=== PATIENT | female | born 1995 | race Two or more races ===

== ENCOUNTER 2024-01-29 16:48 | Emergency (ER) | payer MEDICAID, SELFPAY ==
[2024-01-29 16:59] VITALS: BP 141/89; PULSE 98; RESP 16; TEMP 36.4; O2SAT 99; BMI 19.6
--- NOTE | 2024-01-29 17:00 | PD.EDSKIN ---
ED Skin Abcess FB-RME/HPI General Chief complaint: Animal Bite Stated complaint: Right leg spider bite Time Seen by Provider: 01/29/24 16:53 Arrival date/time: 01/29/24 16:48 28-year-old female presents emergency department today she reports is approximate 10 to 12 weeks patient reports she thinks she has an insect bite to right lower extremity patient reports pain and erythema Limitations: no limitations Related Data Previous Rx's ?Medication ?Instructions ?Recorded acetaminophen 500 mg capsule 500 mg PO Q6H PRN fever or pain 01/02/21 #30 caps ibuprofen 400 mg tablet 400 mg PO Q8H PRN fever or pain 01/02/21 #30 tabs bacitracin 500 unit/gram topical 1 applic topical TID 7 days #28.4 01/29/24 ointment grams cephalexin 500 mg tablet 500 mg PO TID 7 days #21 tabs 01/29/24 Allergies Allergy/AdvReac Type Severity Reaction Status Date / Time No Known Allergies Allergy Verified 01/02/21 06:14 Review of Systems Review of Systems Systems Reviewed: All systems reviewed, normal except as documented Constitutional Constitutional: Reports system reviewed and no additional complaints, except as documented, Denies fever(s) and Denies headache(s) Eyes Eyes: Reports system reviewed and no additional complaints, except as documented and Denies blurry vision ENT Ears, Nose, Mouth, and Throat: Reports system reviewed and no additional complaints, except as documented, Denies headache(s), Denies nasal congestion and Denies nasal discharge Cardiovascular Cardiovascular: Reports system reviewed and no additional complaints, except as documented, Denies chest pain and Denies dyspnea Respiratory Respiratory: Reports system reviewed and no additional complaints, except as documented, Denies chest congestion, Denies cough and Denies dyspnea Gastrointestinal Gastrointestinal: Reports system reviewed and no additional complaints, except as documented and Denies abdominal pain Integumentary/Breasts Skin/Breast: Reports system reviewed and no additional complaints, except as documented, Denies rash and Reports other (Erythema possible insect bite right ankle) Neurologic Neurologic: Reports system reviewed and no additional complaints, except as documented, Reports as per HPI and Denies headache(s) Past Medical History Past Medical History CARDIAC: Negative Congestive Heart Failure RESPIRATORY: Negative Chronic Obstructive Pulmonary Disease (COPD) GENITOURINARY: Negative Renal Disease ENDOCRINE: Negative Diabetes Mellitus Type 1 or Diabetes Mellitus Type 2 Social History SMOKING STATUS: Current every day smoker ED Exam General Limitations: Present no limitations General appearance: Present alert and in no apparent distress Head Head exam: Present atraumatic Eye Eye exam: Present normal appearance, PERRL and EOMI ENT ENT exam: Present normal exam, normal oropharynx and mucous membranes moist Neck Neck exam: Present normal inspection, full ROM and trachea midline Chest Chest inspection: Present normal inspection and symmetric chest wall rise Respiratory Respiratory exam: Present normal lung sounds bilaterally Cardiovascular Cardiovascular exam: Present regular rate, normal rhythm and normal heart sounds Abdominal Exam Abdominal exam: Present soft and normal bowel sounds Extremities Exam Extremities exam: Present full ROM, tenderness and normal capillary refill Back Exam Back exam: Present normal inspection and full ROM Neurological Exam Neurological exam: Present alert, oriented X3 and CN II-XII intact Psychiatric Psychiatric exam: Present normal affect and normal mood Skin Skin exam: Present warm, dry and other (Erythema, insect bite right lower extremity) Course Quality Measures none Vital Signs Vital signs: Vital Signs Temperature 97.5 F 01/29/24 16:59 Pulse Rate 98 01/29/24 16:59 Respiratory Rate 16 01/29/24 16:59 Blood Pressure 141/89 H 01/29/24 16:59 Pulse Oximetry (%) 99 01/29/24 16:59 Oxygen Delivery Method Room Air 01/29/24 16:59 O2 saturation 99% on room air within normal limits Skin / Abscess / Foreign Body MDM Narrative MDM Narrative:: 28-year-old female presents emergency department today she reports is approximate 10 to 12 weeks patient reports she thinks she has an insect bite to right lower extremity patient reports pain and erythema On exam patient has erythema right lower extremity possible insect bite Patient will treat with course of antibiotics Patient discharged home in no distress to follow-up with primary care doctor in the next 24 to 48 hours and for any worsening symptoms to return to the ER immediately Patient data External records reviewed:: [facility] previous records Clinical information provided by:: patient Social determinants that could affect healthcare access:: none Patient has the following chronic illnesses:: None How is presenting disease/condition affected by chronic disease/condition?: no chronic disease Evaluation data The following diagnostics were reviewed and interpreted by me:: other (specify) (N/A) Lab and/or radiology exams considered but not ordered:: Consider not ordered Interpretation Summary: N/A Medications / Prescriptions Medications or Prescriptions considered but not ordered:: Given Medication administrations:: Given Consultations Consultation(s) initiated? (list below): No Diagnosis Skin/Abscess Differential Diagnosis: abscess of skin or subcutaneous tissue, cellulitis and insect bites Most likely diagnosis given after review of the tests above:: Insect bite Admission Indicated Admission indicated?: not indicated Admission Request Was there a request for admission?: No Disposition Plan Disposition Plan: Discharge Discharge Attestation Discharge Attestation: The patient and all family members were given an opportunity to ask questions and understood the discharge instructions. Discharge instructions specifically effects, indications for sooner follow up or return to the emergency department, and the expected course of current diagnosis. Patient condition: Stable Discharge Plan Plan Patient Disposition: HOME (Self Care) Disposition Comment: Stable Prescriptions/Referrals Prescriptions/Med Rec: New bacitracin 500 unit/gram ointment 1 applic topical TID 7 Days Qty: 28.4 0RF cephalexin 500 mg tablet 500 mg PO TID 7 Days Qty: 21 0RF No Action ibuprofen 400 mg tablet 400 mg PO Q8H PRN (Reason: fever or pain) Qty: 30 0RF acetaminophen 500 mg capsule 500 mg PO Q6H PRN (Reason: fever or pain) Qty: 30 0RF Problem List Clinical Impression: Cellulitis Patient/Caregiver Discharge Instructions Education Materials: ED Cellulitis Additional Instructions: Please follow up with your primary care doctor in the next 24-48hrs for any worsening symptoms return here immediately Print Language: Frisian Stand Alone Forms: Angy Award Info., Patient Portal Info Letter ROBYN/OSWALDO Supervising Physician ROBYN/OSWALDO Supervising Physician: Dr. Michel
== END 2024-01-29 17:22 | disposition home or self-care (01) ==
LOC: SERX 17:10
PROVIDERS: Emergency Provider Emergency Medicine; PCP Family Medicine
DX: O99.711 Diseases of the skin and subcutaneous tissue complicating pregnancy, first trimester (principal); L03.115 Cellulitis of right lower limb; O99.331 Smoking (tobacco) complicating pregnancy, first trimester; F17.210 Nicotine dependence, cigarettes, uncomplicated; Z3A.12 12 weeks gestation of pregnancy
CPT/HCPCS: 99281

== ENCOUNTER 2024-02-09 10:14 | Emergency (ER) | payer MEDICAID, SELFPAY ==
[2024-02-09 10:17] VITALS: BP 128/78; PULSE 100; RESP 16; TEMP 36.8; O2SAT 100; BMI 19.0
--- NOTE | 2024-02-09 10:39 | EDNOTE_ITS ---
ED Skin Abcess FB-RME/HPI General Chief complaint: Extremity Problem,Nontraumatic Stated complaint: RIGHT LEG RASH/PAIN X 3 WKS; SEEN ER 2 WKS AGO Time Seen by Provider: 02/09/24 10:33 Source: patient Arrival date/time: 02/09/24 10:14 This is a 28-year-old female who presents to the emergency department with complaints of a possible infected sore to her right lower leg. Patient reports she was evaluated for similar symptoms approximately 3 weeks ago and felt to take her outpatient antibiotics. Patient reports she is currently 12 weeks of gestation. Denies fever, chills rigors no purulent discharge Mode of arrival: ambulatory Limitations: no limitations Related Data Previous Rx's ?Medication ?Instructions ?Recorded acetaminophen 500 mg capsule 500 mg PO Q6H PRN fever or pain 01/02/21 #30 caps ibuprofen 400 mg tablet 400 mg PO Q8H PRN fever or pain 01/02/21 #30 tabs cephalexin 500 mg tablet 500 mg PO TID 5 days #15 tabs 02/09/24 mupirocin 2 % topical ointment 1 applic topical BID 7 days #22 02/09/24 grams Allergies Allergy/AdvReac Type Severity Reaction Status Date / Time No Known Allergies Allergy Verified 02/09/24 10:16 Review of Systems Review of Systems Systems Reviewed: All systems reviewed, normal except as documented Narrative Review of Systems: Gen: No fever, no chills, no weight loss EYES: No discharge, no visual changes, no pain HEENT: No ear pain, no congestion, no sore throat PULM: No shortness of breath, no cough, no congestion CV: No chest pain, no dyspnea on exertion, no palpitations GI: No nausea, no vomiting, no diarrhea, no pain, no constipation : No frequency, no urgency,? no dysuria Musc/skel: No joint pain, no back pain Skin: + Lighters rash right lower leg ED Exam General Limitations: Present no limitations General appearance: Present alert and in no apparent distress Head Head exam: Present atraumatic Eye Eye exam: Present normal appearance, PERRL and EOMI ENT ENT exam: Present normal exam, normal oropharynx and mucous membranes moist Neck Neck exam: Present normal inspection, full ROM and trachea midline Chest Chest inspection: Present normal inspection and symmetric chest wall rise Respiratory Respiratory exam: Present normal lung sounds bilaterally Cardiovascular Cardiovascular exam: Present regular rate, normal rhythm and normal heart sounds Abdominal Exam Abdominal exam: Present soft and normal bowel sounds Extremities Exam Extremities exam: Present full ROM, tenderness and normal capillary refill Back Exam Back exam: Present normal inspection and full ROM Neurological Exam Neurological exam: Present alert, oriented X3 and CN II-XII intact Psychiatric Psychiatric exam: Present normal affect and normal mood Skin Skin exam: Present warm, dry and other (Erythema, insect bite right lower extremity) Course Quality Measures none Orders Category Date Time Status cefTRIAXone [Rocephin] 1,000 mg Med 02/09/24 10:35 Discontinued Lidocaine 1% 20 ml [Xylocaine 1% 20 ML] 2.1 ml IM X1 Vital Signs Vital signs: Vital Signs Temperature 98.2 F 02/09/24 10:17 Pulse Rate 100 02/09/24 10:17 Respiratory Rate 16 02/09/24 10:17 Blood Pressure 128/78 02/09/24 10:17 Pulse Oximetry (%) 100 02/09/24 10:17 Oxygen Delivery Method Room Air 02/09/24 10:17 Skin / Abscess / Foreign Body MDM Narrative MDM Narrative:: 28-year-old female presents emergency department today she reports is approximate 10 to 12 weeks , here with what appears of cellulitis pattern to right lower leg. Patient reports she did not take her Keflex as directed on last visit. Patient will treat with course of antibiotics, gram of Rocephin given in ED. Patient discharged home in no distress to follow-up with primary care doctor in the next 24 to 48 hours and for any worsening symptoms to return to the ER immediately Patient data External records reviewed:: [facility] [place] previous records Clinical information provided by:: patient Social determinants that could affect healthcare access:: none Patient has the following chronic illnesses:: None How is presenting disease/condition affected by chronic disease/condition?: no chronic disease Evaluation data The following diagnostics were reviewed and interpreted by me:: other (specify) (N/A) Lab and/or radiology exams considered but not ordered:: Consider not ordered Interpretation Summary: N/A Medications / Prescriptions Medications or Prescriptions considered but not ordered:: Given Medication administrations:: Medication Administration History Discontinued Medications Ceftriaxone Sodium 1,000 mg/ (Lidocaine HCl 2.1 ml) 0 mg IM X1 ONE Stop: 02/09/24 10:36 Last Admin: 02/09/24 10:49 Dose: 2.1 mg Documented By: OA Given Consultations Consultation(s) initiated? (list below): No Diagnosis Skin/Abscess Differential Diagnosis: abscess of skin or subcutaneous tissue, cellulitis and insect bites Most likely diagnosis given after review of the tests above:: Cellulitis lower leg Admission Indicated Admission indicated?: not indicated Admission Request Was there a request for admission?: No Disposition Plan Disposition Plan: Discharge Discharge Attestation Discharge Attestation: The patient and all family members were given an opportunity to ask questions and understood the discharge instructions. Discharge instructions specifically effects, indications for sooner follow up or return to the emergency department, and the expected course of current diagnosis. Patient condition: Stable Discharge Plan Plan Patient Disposition: HOME (Self Care) Prescriptions/Referrals Prescriptions/Med Rec: New mupirocin 2 % ointment 1 applic topical BID 7 Days Qty: 22 0RF cephalexin 500 mg tablet 500 mg PO TID 5 Days Qty: 15 0RF No Action ibuprofen 400 mg tablet 400 mg PO Q8H PRN (Reason: fever or pain) Qty: 30 0RF acetaminophen 500 mg capsule 500 mg PO Q6H PRN (Reason: fever or pain) Qty: 30 0RF Problem List Clinical Impression: Cellulitis Patient/Caregiver Discharge Instructions Discharge Activity: activity as tolerated Education Materials: ED Cellulitis Additional Instructions: Keep area clean and dry. Please perform good hygiene apply the antibiotic cream as directed. You need to restart your antibiotic and complete course Follow-up with your primary doctor or clinic for further evaluation Return to the emergency department with any worsening symptoms change in condition. Print Language: Faroese Stand Alone Forms: Angy Award Info., Patient Portal Info Letter MD Attestation Attestation The patient was seen by the midlevel practitioner. I, the co-signing physician, was present during the entire ER visit. While I did not physically examine the patient, I was available for consultation as needed.
[2024-02-09] MEDS: cefTRIAXone 1,000 MG, LIDOCAINE 1% 20 ML 2.1 ML IM (10:49)
== END 2024-02-09 12:52 | disposition home or self-care (01) ==
LOC: SERX 10:48
PROVIDERS: Emergency Provider Emergency Medicine
DX: L03.115 Cellulitis of right lower limb (principal)
CPT/HCPCS: 96372; 99283; J0696; J3490

== ENCOUNTER 2024-04-23 13:22 | Outpatient (AMB) | payer MEDICAID, SELFPAY ==
--- NOTE | 2024-04-23 13:16 | OBCLNT_ITS ---
Vital Signs 04/23/24 13:30 Height 1.68 m Height Method Stated Weight 58.769 kg Weight Measurement Method Standing Scale BMI 20.8 BP 111/68 Blood Pressure Source Automatic Cuff Blood Pressure Location Left Upper Arm Position Sitting Respiration 16 Pulse 100 Pulse Source Monitor Temp 96.8 F Temp Source Oral Pulse Oximetry (%) 100 Oxygen Delivery Method Room Air Allergies/Home Meds Allergies & Medications Allergies No Known Allergies Allergy (Verified 04/23/24 13:32) Medication Reconciliation No Known Home Medications 04/23/24 [History Confirmed 04/23/24] Intake Visit Data Collection New Patient or Established: Established Patient (seen at [facility] within 3 years) Reason for Visit:: Establish OB care Consent obtained for Telemed Visit: No Seen by Clinical Staff ONLY (RN/MA): No Jet Engine Mechanic Required: No Do You Feel Safe at Home: Yes Authorities Contacted: N/A PCP or OBGYN visit in last 3 months: Yes Date of Last PCP or OBGYN visit: 01/09/24 Hx Now: Yes Are you currently on any form of Control: No Last menstrual period: 11/28/23 Pain Present Currently: No Pain Scale Used: Bee-Mejia/Numerical Pain scale:: 0 Smoking Status Smoking Status: Current some day smoker Cessation Counseling Provided: SPENCER was advised that quitting smoking is the single most important factor to protect the health of themselves and their family. Discussed the benefits of quitting smoking with patient. Encouraged patient to quit smoking and provided Cessation assistance materials and resources. Tobacco Use: Cigarette Years smoked: 5 Are you interested in Quitting?: No Questionnaires Covid-19 Vaccine Questionnaire Has patient been vacinated for Covid-19 Have you been vacinated for Covid-19: No PHQ-9 PHQ-2 Over the last 2 weeks, how often have you been bothered by any of the following problems? 1. Little interest or pleasure in doing things: not at all 2. Feeling down, depressed, or hopeless: not at all Total score: 0 PHQ-9 3. Trouble falling or staying asleep, or sleeping too much: Not at all 4. Feeling tired or having little energy: Not at all 5. Poor appetite or overeating: Not at all 6. Feeling bad about yourself - or that you are a failure or have let yourself or your family down: Not at all 7. Trouble concentrating on things, such as reading the newspaper or watching television: Not at all 8. Moving or speaking so slowly that other people could have noticed? - Or the opposite - being so fidgety or restless that you have been moving around a lot more than usual: not at all 9. Thoughts that you would be better off or of hurting yourself in some wa y: Not at all Total score: 0 Source: Developed by Drs. Donn Solorio, Nora Woodard, Kayden Medina and colleagues, with an educational darío from [employer]. Depression screen completed yes Social History Living Situation History Marital Status: Life Partner Lives With: Significant Other Housing: House Tobacco History Smoking Status: Current some day smoker Alcohol History Alcohol Intake: Former Alcohol Intake Frequency: A Few Times a Month Substance Use History Substance Use: daily fentanyl Domestic Abuse History Do You Feel Safe at Home: Yes Past Medical History Past Medical History Have you ever been diagnosed with any of the following: Neurological Problems Meningitis: No Seizures: No Guillain-Shirland Syndrome: No Moseley's Palsy: No Migraine: No Cardiology Problems Cardiac Arrhythmia: No Heart Murmur: No Rheumatic Fever: No Hypertension: No Respiratory Problems Chronic Obstructive Pulmonary Disease (COPD): No Asthma: No Smoking: Yes Smoking Cessation Counseling: Yes Smoking Exposure: Yes Stomache/Intestinal Problems Hepatitis: No Genital/Urinary Problems Renal Disease: No Reproductive Problems Breast Cancer: No Endometriosis: No Fibroids: No Genital Herpes: No Gonorrhea: No Pelvic Inflammatory Disease: No Polycystic Ovarian Syndrome: No Previous Pregnancies: Yes (ETOP in past) Syphilis: No Musculoskeletal Problems Arthritis: No Rheumatoid Arthritis: No Scoliosis: Yes Fibromyalgia: No Endocrine Problems Diabetes Mellitus Type 1: No Diabetes Mellitus Type 2: No Hyperthyroidism: No Hypothyroidism: No Blood Problems Anemia: No Psychologic Problems Recreational Drug Use: Yes History of Present Illness HPI Narrative The patient is a 29 y/o at around 18-19 weeks presents as a new OB. The pt states she went to [facility] in January and paid for an US at home recently. She states she is a current fentanyl user and admits to daily use. She states she saw an MD in [place] in the past reporting very large breasts and back pain with scoliosis and he prescribed oxycontin while awaiting a referral for a breast reduction. Pt stated she got hooked on oxy after this. She stated once she was taking daily narcotics, that she lost a lot of weight and does not need a breast reduction now.She states she wants to have a healthy baby and wants to get off the fentanyl. She states she is entering in patient rehab in May. The FOB does not use drugs per pt. OB Initial Visit Menstrual History Menstrual reliability: definite Flow: normal Menstrual regularity: regular Monthly: Yes Age at menarche: 8 On control pills at conception: No Associated symptoms (LMP): Reports fatigue and breast tenderness OB History : 2 Hx Total # of Abortions (Spontaneous & Elective): 1 Infection History & Risk Evaluation History of STDs: none HIV risk evaluation: low risk Hepatitis B risk evaluation: low risk Patient or partner has history of Genital Herpes: No Varicella/chicken pox status: immunized Genetic Screening & History Genetic Screening/Teratology Counseling - Includes patient, baby's father, or anyone in either family with: 1. Patient's age 35 years or older as of estimated date of delivery: No 2. Thalassemia (North Korean, Northern Irish, Mediterranean, or Background); MCV less than 80: No 3. Neural Tube Defect (Meningomyelocele, Spina Bifida, or Anencephaly): No 4. Congenital Heart Defect: No 5. Down Syndrome: No 6. Clayton-Sachs (Ashkenazi Anabaptism, Cajun, [place] Citizen Monegasque): No 7. Leilani Disease (Ashkenazi Anabaptism): No 8. Familial Dysautonomia (Ashkenazi Anabaptism): No 9. Sickle Cell Disease or Trait (): No 10. Hemophilia or other blood disorders: No 11. Muscular Dystrophy: No 12. Cystic Fibrosis: No 13. [place]'s Chorea: No 14. Mental Retardation/Autism: No 15. Other inherited genetic or chromosomal disorder: No 16. Maternal Metabolic Disorder (EG,TYPE 1 Diabetes, PKU): No 17. Patient or baby's father had a child with defects not listed above: No 18. Recurrent loss or a stillbirth: No 19. Medications (including supplements, vitamins, herbs or otc drugs)/illicit/recreational drugs/alcohol since last menstrual period: No 20. Any other: No Infection History 1. Live with someone with TB or exposed to TB: No 2. Rash or viral illness since last menstrual period: No 3. Hepatitis B,C: No Other (see comments) Source: [employer] OB Flowsheet OB Flowsheet Initial Weight: Not Recorded Date -?-?-?-?-?-?-?-?-?-?-?-?- EGA Weight Edema CTX Effacement BP Fundal ht Pres Dilation Effacement Station Visit Note Alb Glu FHR Mov 04/23/24 -?-?-?-?-?-?-?-?-?-?-?-?- 18w 6d 58.769 kg 111/68 140 active Review of Systems Review of Systems Systems Reviewed: All systems reviewed, normal except as documented Constitutional Constitutional: Reports fatigue Comments: Pt reports good FM, no UCs or VB Endocrine Endocrine: Reports fatigue Exam General Limitations: no limitations General Appearance: alert and anxious Head Head exam: atraumatic, normocephalic and normal inspection ENT ENT exam: Present other (Poor dentition) Neck Neck exam: Present normal inspection, full ROM and trachea midline Chest Chest inspection: Present normal inspection and symmetric chest wall rise Resp Respiratory exam: Present normal lung sounds bilaterally Card Cardiovascular exam: Present regular rate, normal rhythm and normal heart sounds Abdominal Abdominal exam: Present other (fundus 20 week size) Bimanual exam: Present uterine enlargement (20 weeks size) Skin Skin exam: Present warm, dry, intact and normal color Assessment & Plan Diagnosis / Problem List (1) Fentanyl dependence: Status: Acute Plan: Strongly discouraged drug use in or at all. Told of dangers of opioid addiction especially buying opiods on the street. The fact that she could suddenly and stop breathing was discussed. Naloxone use was strongly recommended.Consider referrall to Dr. Kruger for pain management. Pt has an appointment at rehab coming up. (2) : Status: Acute Qualifiers: Weeks of gestation: 19 weeks Qualified Code(s): Z3A.19 - 19 weeks gestation of Plan: Pt needs high school special education teacher consult and a Level II US for Hx current daily fentanyl use. Get PNC labs and pt desires NIPT Additional Plan Follow Up: 4 Weeks Office Procedures OB Clinic LOC & Office Proc's Nursing/Assessment Patient Status: Established Patient OB Clinic Nursing Assessment: BP Monitoring, Medication Reconciliation, Update PMH in EMR and Vital Signs OB Clinic Coordination of Care: Consent,records obtained, informed consent, Education Simp Pt/Fam, Lab and Imaging orders and Staff clarify orders Special Needs: Heart tones Established Patient Charge Established Patient Point Assignment: 120 Established Patient Point Charge: EP Level 4 (120-155)
[2024-04-23 13:30] VITALS: BP 111/68; PULSE 100; RESP 16; TEMP 36; O2SAT 100; BMI 20.8
== END 2024-04-23 14:44 | disposition home or self-care (01) ==
LOC: HODSOBC 13:22
PROVIDERS: Supervising Provider Obstetrics & Gynecology; Visit Provider Obstetrics & Gynecology
DX: O99.322 Drug use complicating pregnancy, second trimester (principal); F11.20 Opioid dependence, uncomplicated; Z3A.19 19 weeks gestation of pregnancy
CPT/HCPCS: 99214; G0463

== ENCOUNTER 2024-06-07 09:54 | Outpatient (AMB) | payer MEDICAID, SELFPAY ==
[2024-06-07 10:20] VITALS: BP 121/73; PULSE 105; RESP 16; TEMP 36.2; O2SAT 98; BMI 22.4
--- NOTE | 2024-06-07 10:20 | OBCLNT_ITS ---
Vital Signs 06/07/24 10:20 Height 1.68 m Height Method Stated Weight 63.106 kg Weight Measurement Method Standing Scale BMI 22.4 BP 121/73 Blood Pressure Source Automatic Cuff Blood Pressure Location Left Upper Arm Position Sitting Respiration 16 Pulse 105 H Pulse Source Monitor Temp 97.2 F Temp Source Oral Pulse Oximetry (%) 98 Oxygen Delivery Method Room Air Allergies/Home Meds Allergies & Medications Allergies No Known Allergies Allergy (Verified 06/07/24 10:22) Medication Reconciliation cephalexin 500 mg capsule 500 mg PO TID 7 days #21 caps 06/07/24 [Rx] famotidine 20 mg tablet (Pepcid) 20 mg PO BID 6 weeks #84 tabs 06/07/24 [Rx] Intake Visit Data Collection New Patient or Established: Established Patient (seen at [facility] within 3 years) Reason for Visit:: Follow-up of the visit Seen by Clinical Staff ONLY (RN/MA): No Citizenship Instructor Required: No Do You Feel Safe at Home: Yes Authorities Contacted: N/A PCP or OBGYN visit in last 3 months: Yes Date of Last PCP or OBGYN visit: 04/23/24 Hx Now: Yes Are you currently on any form of Control: No Pain Present Currently: No Pain Scale Used: Bee-Mejia/Numerical Pain scale:: 0 Smoking Status Smoking Status: Current some day smoker Cessation Counseling Provided: SPENCER was advised that quitting smoking is the single most important factor to protect the health of themselves and their family. Discussed the benefits of quitting smoking with patient. Encouraged patient to quit smoking and provided Cessation assistance materials and resources. Tobacco Use: Vapor Cigarette (Fentanyl) Years smoked: 3 Are you interested in Quitting?: Yes Would you like additional Smoking Cessation Counseling?: No Questionnaires Covid-19 Vaccine Questionnaire Has patient been vacinated for Covid-19 Have you been vacinated for Covid-19: Yes PHQ-9 PHQ-2 Over the last 2 weeks, how often have you been bothered by any of the following problems? 1. Little interest or pleasure in doing things: not at all 2. Feeling down, depressed, or hopeless: not at all Total score: 0 PHQ-9 3. Trouble falling or staying asleep, or sleeping too much: Not at all 4. Feeling tired or having little energy: Not at all 5. Poor appetite or overeating: Not at all 6. Feeling bad about yourself - or that you are a failure or have let yourself or your family down: Not at all 7. Trouble concentrating on things, such as reading the newspaper or watching television: Not at all 8. Moving or speaking so slowly that other people could have noticed? - Or the opposite - being so fidgety or restless that you have been moving around a lot more than usual: not at all 9. Thoughts that you would be better off or of hurting yourself in some way: Not at all Total score: 0 If you checked off any problems, how difficult have these problems made it for you to do your work, take care of things at home, or get along with other people?: not difficult at all Source: Developed by Drs. Donn Solorio, Nora Woodard, Kayden Medina and colleagues, with an educational darío from [employer]. Depression screen completed yes Social History Living Situation History Marital Status: Single Lives With: Significant Other Housing: House Housing Other:: Father the baby is present today. They state they are moving to [place] soon Tobacco History Smoking Status: Current some day smoker Alcohol History Alcohol Intake: Former Alcohol Intake Frequency: A Few Times a Month Substance Use History Substance Use: daily fentanyl. On first visit was+ for fentanyl and amphetamines Domestic Abuse History Do You Feel Safe at Home: Yes Past Medical History Past Medical History Have you ever been diagnosed with any of the following: Neurological Problems Meningitis: No Seizures: No Guillain-[place] Syndrome: No Moseley's Palsy: No Migraine: No Cardiology Problems Cardiac Arrhythmia: No Heart Murmur: No Congestive Heart Failure: No Rheumatic Fever: No Hypertension: No Respiratory Problems Chronic Obstructive Pulmonary Disease (COPD): No Asthma: No Smoking: Yes Smoking Cessation Counseling: Yes Smoking Exposure: Yes Stomache/Intestinal Problems Hepatitis: No Genital/Urinary Problems Renal Disease: No Reproductive Problems Breast Cancer: No Endometriosis: No Fibroids: No Genital Herpes: No Gonorrhea: No Pelvic Inflammatory Disease: No Polycystic Ovarian Syndrome: No Previous Pregnancies: Yes (ETOP in past) Syphilis: No Musculoskeletal Problems Arthritis: No Rheumatoid Arthritis: No Scoliosis: Yes Fibromyalgia: No Endocrine Problems Diabetes Mellitus Type 1: No Diabetes Mellitus Type 2: No Hyperthyroidism: No Hypothyroidism: No Blood Problems Anemia: No Psychologic Problems Recreational Drug Use: Yes Visit TAI Calculator Estimated Delivery Date Method Current WG Current Estimate 09/18/24 Ultrasound #1 25w 2d Other Estimates 09/03/24 LMP (Uncertain) 27w 3d Expected Delivery Route/Plan Anticipate Specific Issue/Plans First visit positive for amphetamines and fentanyl. Drug screen at each visit. Patient is trying to wean off the fentanyl. She was smoking 1 g of fentanyl a day and is now down to one half of a gram of fentanyl per day. Refer to maternal- medicine Initial Weight: Not Recorded Date -?-?-?-?-?-?-?-?-?-?-?-?- EGA Weight Edema CTX Effacement BP Fundal ht Pres Dilation Effacement Station Visit Note Alb Glu FHR Mov 04/23/24 -?-?-?-?-?-?-?-?-?-?-?-?- 18w 6d 58.769 kg 111/68 140 active 06/07/24 -?-?--?-?-?-?-?-?-?-?-?-?- 25w 2d 63.106 kg 121/73 26 150 active Notes Visit Date: 06/07/24 Last Updated by: Gita Chou (OB Clinic)MD Father of baby is present today. He states they are moving to [place] because he got a job there. They are not sure when they are going to go but probably before delivery. Patient states her hands are cracking and they are red and same thing is happening to her feet she feels hot and cold and she is jittery today and clammy. No fevers. She is weaning off her fentanyl. She is down to a half a gram a day and she is smoking this. She was on 1 g a day. She denies any other drug use. We did discuss her anxiety and likely withdrawal symptoms I did offer medication such as Zoloft. Patient declines, she states she is going into rehab soon. Schedule structural survey. Schedule glucose challenge test and drug screen. Results Objective Laboratory: labs were reviewed today revealing positive amphetamines and fentanyl at her first visit to [facility]. Patient will do UDS patient also had a UTI I am unsure whether this was treated so I will treat her with Keflex Assessment & Plan Diagnosis / Problem List (1) Fentanyl dependence: Status: Acute Plan: Encouraged discontinuing drug use. Assessment and Plan: Refer to maternal- medicine (2) : Status: Acute Qualifiers: Weeks of gestation: 25 weeks Qualified Code(s): Z3A.25 - 25 weeks gestation of Assessment and Plan: Need glucose challenge test, check thyroid. Check drug screen. Unsure whether her UTI was treated at first visit at [facility] so we will prescribe Keflex. Additional Plan Pepcid called in for heartburn Follow Up: 2 Weeks Office Procedures OB Clinic LOC & Office Proc's Nursing/Assessment Patient Status: Established Patient OB Clinic Nursing Assessment: BP Monitoring, Medication Reconciliation, Update PMH in EMR and Vital Signs OB Clinic Coordination of Care: Consent,records obtained, informed consent, Education Simp Pt/Fam and Staff clarify orders Special Needs: Heart tones Established Patient Charge Established Patient Point Assignment: 105 Established Patient Point Charge: EP Level 3 (80-115)
== END 2024-06-07 10:57 | disposition home or self-care (01) ==
LOC: HODSOBC 09:54
PROVIDERS: PCP Obstetrics & Gynecology; Referring Provider Obstetrics & Gynecology; Supervising Provider Obstetrics & Gynecology; Visit Provider Obstetrics & Gynecology
DX: O99.322 Drug use complicating pregnancy, second trimester (principal); F11.20 Opioid dependence, uncomplicated; Z3A.25 25 weeks gestation of pregnancy
CPT/HCPCS: 99213; G0463

== ENCOUNTER 2024-06-25 15:30 | Outpatient (AMB) | payer MEDICAID, SELFPAY ==
[2024-06-25 15:54] VITALS: BP 119/74; PULSE 103; RESP 18; TEMP 36.2; O2SAT 99; BMI 22.8
--- NOTE | 2024-06-25 15:54 | AMB.OBVISIT ---
Vital Signs 06/25/24 15:54 Height 1.68 m Height Method Stated Weight 64.524 kg Weight Measurement Method Standing Scale BMI 22.8 BP 119/74 Blood Pressure Source Automatic Cuff Blood Pressure Location Left Upper Arm Position Sitting Respiration 18 Pulse 103 H Pulse Source Monitor Temp 97.2 F Temp Source Oral Pulse Oximetry (%) 99 Oxygen Delivery Method Room Air Allergies/Home Meds Allergies & Medications Allergies No Known Allergies Allergy (Verified 06/25/24 15:56) Medication Reconciliation famotidine 20 mg tablet (Pepcid) 20 mg PO BID 6 weeks #84 tabs 06/07/24 [Rx Confirmed 06/25/24] Intake Visit Data Collection New Patient or Established: Established Patient (seen at [facility] within 3 years) Reason for Visit:: appointment Seen by Clinical Staff ONLY (RN/MA): No Absorption Operator Required: No Do You Feel Safe at Home: Yes Authorities Contacted: N/A PCP or OBGYN visit in last 3 months: Yes Date of Last PCP or OBGYN visit: 06/07/24 Hx Now: Yes Are you currently on any form of Control: No Pain Present Currently: No Pain Scale Used: Bee-Mejia/Numerical Pain scale:: 0 Smoking Status Smoking Status: Current some day smoker Cessation Counseling Provided: SPENCER was advised that quitting smoking is the single most important factor to protect the health of themselves and their family. Discussed the benefits of quitting smoking with patient. Encouraged patient to quit smoking and provided Cessation assistance materials and resources. Tobacco Use: Cigarette Years smoked: 5 Are you interested in Quitting?: No Questionnaires Covid-19 Vaccine Questionnaire Has patient been vacinated for Covid-19 Have you been vacinated for Covid-19: Yes PHQ-9 PHQ-2 Over the last 2 weeks, how often have you been bothered by any of the following problems? 1. Little interest or pleasure in doing things: not at all 2. Feeling down, depressed, or hopeless: not at all Total score: 0 PHQ-9 3. Trouble falling or staying asleep, or sleeping too much: Not at all 4. Feeling tired or having little energy: Not at all 5. Poor appetite or overeating: Not at all 6. Feeling bad about yourself - or that you are a failure or have let yourself or your family down: Not at all 7. Trouble concentrating on things, such as reading the newspaper or watching television: Not at all 8. Moving or speaking so slowly that other people could have noticed? - Or the opposite - being so fidgety or restless that you have been moving around a lot more than usual: not at all 9. Thoughts that you would be better off or of hurting yourself in some way: Not at all Total score: 0 If you checked off any problems, how difficult have these problems made it for you to do your work, take care of things at home, or get along with other people?: not difficult at all Source: Developed by Drs. Donn Solorio, Nora Woodard, Kayden Medina and colleagues, with an educational darío from [employer]. Depression screen completed yes Social History Living Situation History Marital Status: Single Lives With: Significant Other Housing: House Housing Other:: Father the baby is present today. They state they are moving to [place] soon Tobacco History Smoking Status: Current some day smoker Alcohol History Alcohol Intake: Former Alcohol Intake Frequency: A Few Times a Month Substance Use History Substance Use: daily fentanyl. On first visit was+ for fentanyl and amphetamines Domestic Abuse History Do You Feel Safe at Home: Yes Past Medical History Past Medical History Have you ever been diagnosed with any of the following: Neurological Problems Meningitis: No Seizures: No Guillain-[place] Syndrome: No Moseley's Palsy: No Migraine: No Cardiology Problems Cardiac Arrhythmia: No Heart Murmur: No Congestive Heart Failure: No Rheumatic Fever: No Hypertension: No Respiratory Problems Chronic Obstructive Pulmonary Disease (COPD): No Asthma: No Smoking: Yes Smoking Cessation Counseling: Yes Smoking Exposure: Yes Stomache/Intestinal Problems Hepatitis: No Genital/Urinary Problems Renal Disease: No Reproductive Problems Breast Cancer: No Endometriosis: No Fibroids: No Genital Herpes: No Gonorrhea: No Pelvic Inflammatory Disease: No Polycystic Ovarian Syndrome: No Previous Pregnancies: Yes (ETOP in past) Syphilis: No Musculoskeletal Problems Arthritis: No Rheumatoid Arthritis: No Scoliosis: Yes Fibromyalgia: No Endocrine Problems Diabetes Mellitus Type 1: No Diabetes Mellitus Type 2: No Hyperthyroidism: No Hypothyroidism: No Blood Problems Anemia: No Psychologic Problems Recreational Drug Use: Yes Visit OB Visit Log OB Flowsheet Initial Weight: Not Recorded Date <del>?</del> EGA Weight Edema CTX Effacement BP Fundal ht Pres Dilation Effacement Station Visit Note Alb Glu FHR Mov 04/23/24 <del>?</del> 18w 6d 58.769 kg 111/68 140 active 06/07/24 <del>?</del> 25w 2d 63.106 kg 121/73 26 150 active 06/25/24 <del>?</del> 27w 6d 64.524 kg 119/74 28 Tried to get into rehab for daily fentanyl abuse. She smokes it in rock form. FOB at bedside. Pt ried to get into rehab but too expensive. Tried to get into Methadone clinic but she lost her ID and has to get another one. 140 active TAI Calculator Estimated Delivery Date Method Current WG Current Estimate 09/18/24 Ultrasound #1 28w 3d Other Estimates 09/03/24 LMP (Uncertain) 30w 4d Comments: [facility]NC labs at [facility] from 04/21/24: O+/Ab-/HepBSag -/HIV-/GC-/Chlam-/RPR nonreactive /Rubella Immune/Hgb 12.5/Hct 38.6 Expected Delivery Route/Plan Anticipate Specific Issue/Plans First visit positive for amphetamines and fentanyl. Drug screen at each visit. Patient is trying to wean off the fentanyl. She was smoking 1 g of fentanyl a day and is now down to one half of a gram of fentanyl per day. Refer to maternal- medicin.e Notes Visit Date: 06/25/24 Last Updated by: Gita Chou (OB Clinic)MD Pt has appointment with [facility] coming up. Admits to daily fentanyl use. smokes rock . FOB at bedside. Pt interested in quitting but they will not see her in a Methadone clinic without her ID. She lost this and has to go to [place] to get a certificate then the [facility] for an ID. Strongly encouraged the patient to slowly quit fentanyl. Discourage quitting cold turkey due to side effects of withdrawl. Visit Date: 06/07/24 Last Updated by: Gita Chou (OB Clinic)MD Father of baby is present today. He states they are moving to [place] because he got a job there. They are not sure when they are going to go but probably before delivery. Patient states her hands are cracking and they are red and same thing is happening to her feet she feels hot and cold and she is jittery today and clammy. No fevers. She is weaning off her fentanyl. She is down to a half a gram a day and she is smoking this. She was on 1 g a day. She denies any other drug use. We did discuss her anxiety and likely withdrawal symptoms I did offer medication such as Zoloft. Patient declines, she states she is going into rehab soon. Schedule structural survey. Schedule glucose challenge test and drug screen. Office Procedures OB Clinic LOC & Office Proc's Nursing/Assessment Patient Status: Established Patient OB Clinic Nursing Assessment: BP Monitoring, Medication Reconciliation, Update PMH in EMR and Vital Signs OB Clinic Coordination of Care: Complex Care and Chronic Disease 1-5, Consent,records obtained, informed consent, Education Simp Pt/Fam, Lab and Imaging orders and Staff clarify orders Established Patient Charge Established Patient Point Assignment: 115 Established Patient Point Charge: EP Level 3 (80-115)
== END 2024-06-25 16:39 | disposition home or self-care (01) ==
LOC: HODSOBC 15:30
PROVIDERS: Supervising Provider Obstetrics & Gynecology; Visit Provider Obstetrics & Gynecology
DX: O09.892 Supervision of other high risk pregnancies, second trimester (principal); Z3A.27 27 weeks gestation of pregnancy; O99.322 Drug use complicating pregnancy, second trimester; O99.332 Smoking (tobacco) complicating pregnancy, second trimester; F17.210 Nicotine dependence, cigarettes, uncomplicated; F11.10 Opioid abuse, uncomplicated; Z71.51 Drug abuse counseling and surveillance of drug abuser; Z71.6 Tobacco abuse counseling; O99.342 Other mental disorders complicating pregnancy, second trimester; F41.9 Anxiety disorder, unspecified
CPT/HCPCS: 99213; G0463

== ENCOUNTER 2024-09-06 13:25 | Outpatient (AMB) | payer MEDICAID, SELFPAY ==
[2024-09-06 13:34] VITALS: BP 128/78; PULSE 86; RESP 18; TEMP 36.7; O2SAT 98; BMI 28.4
--- NOTE | 2024-09-06 13:34 | OBCLNT_ITS ---
Vital Signs 09/06/24 13:34 Height 1.55 m Height Method Measured Weight 68.266 kg Weight Measurement Method Standing Scale BMI 28.4 BP 128/78 Blood Pressure Source Automatic Cuff Blood Pressure Location Right Upper Arm Position Sitting Respiration 18 Pulse 86 Pulse Source Monitor Temp 98.0 F Temp Source Temporal Artery Scan Pulse Oximetry (%) 98 Oxygen Delivery Method Room Air Allergies/Home Meds Allergies & Medications Allergies No Known Allergies Allergy (Verified 09/06/24 13:35) Intake Visit Data Collection New Patient or Established: Established Patient (seen at [facility] within 3 years) Reason for Visit:: OBC Consent obtained for Telemed Visit: No Seen by Clinical Staff ONLY (RN/MA): No Fiberglass Laminator Required: No Do You Feel Safe at Home: Yes Authorities Contacted: N/A PCP or OBGYN visit in last 3 months: Yes Date of Last PCP or OBGYN visit: 06/25/24 Hx Now: Yes Are you currently on any form of Control: No Pain Present Currently: No Pain Scale Used: Bee-Mejia/Numerical Pain scale:: 0 Smoking Status Smoking Status: Current some day smoker Cessation Counseling Provided: SPENCER was advised that quitting smoking is the single most important factor to protect the health of themselves and their family. Discussed the benefits of quitting smoking with patient. Encouraged patient to quit smoking and provided Cessation assistance materials and resources. Tobacco Use: Pipe Years smoked: 5 Are you interested in Quitting?: No Questionnaires Covid-19 Vaccine Questionnaire Has patient been vacinated for Covid-19 Have you been vacinated for Covid-19: No PHQ-9 PHQ-2 Over the last 2 weeks, how often have you been bothered by any of the following problems? 1. Little interest or pleasure in doing things: not at all PHQ-9 8. Moving or speaking so slowly that other people could have noticed? - Or the o pposite - being so fidgety or restless that you have been moving around a lot more than usual: not at all Source: Developed by Drs. Donn Solorio, Nora Woodard, Kayden Medina and colleagues, with an educational darío from [employer]. Social History Living Situation History Lives With: Significant Other Housing: House Housing Other:: Father the baby is present today. They state they are moving to [place] soon Tobacco History Smoking Status: Current some day smoker Alcohol History Alcohol Intake: Former Alcohol Intake Frequency: A Few Times a Month Substance Use History Substance Use: daily fentanyl. 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-?-?-?-?- w 6d 64.524 kg 119/74 28 140 active Tried to get into rehab for daily fentanyl abuse. She smokes it in rock form. FOB at bedside. Pt ried to get into rehab but too expensive. Tried to get into Methadone clinic but she lost her ID and has to get another one. 09/06/24 -?-?-?-?-?-?-?-?-?-?-?-?- 38w 2d 68.266 kg 128/78 cephalic 36 150 active -2 Positive movement no contractions no loss of fluids. Patient is going to a methadone clinic and on 35 mg of methadone p.o. daily. To OB triage for +4 edema of ankles rule out preeclampsia. TAI Calculator Estimated Delivery Date Method Current WG Current Estimate 09/18/24 Ultrasound #1 38w 2d Other Estimates 09/03/24 LMP (Uncertain) 40w 3d Expected Delivery Route/Plan Anticipate Care started at [facility]. Patient's blood type O+ /antibody negative /HIV negative/ hep C negative /hep B negative /rubella immune /RPR nonreactive/ GC chlamydia negative/ hemoglobin 12.5 /hematocrit 38.6 /positive for amphetamines /positive for methamphetamines /positive for fentanyl on original UDS Patient missed her 1 hour glucose Level 2 ultrasound on the chart with Dr. Hudson and echocardiogram on the chart with Dr. Hudson Group B strep done 09/06/2024 Specific Issue/Plans First visit positive for amphetamines and fentanyl. Drug screen at each visit. Patient is trying to wean off the fentanyl. She was smoking 1 g of fentanyl a day and is now down to one half of a gram of fentanyl per day. Refer to maternal- medicin.e Notes Visit Date: 09/06/24 Last Updated by: Gita Chou (OB Clinic)MD EDC 09/18/2024 schedule induction of labor 09/11/2024 due to high risk . History of methamphetamine and fentanyl use. On methadone 35 mg p.o. daily. Visit Date: 06/25/24 Last Updated by: Gita Chou (OB Clinic)MD Pt has appointment with [facility] coming up. Admits to daily fentanyl use. smokes rock . FOB at bedside. Pt interested in quitting but they will not see her in a Methadone clinic without her ID. She lost this and has to go to [place] to get a certificate then the [facility] for an ID. Strongly encouraged the patient to slowly quit fentanyl. Discourage quitting cold turkey due to side effects of withdrawl. Visit Date: 06/07/24 Last Updated by: Gita Chou (OB Clinic)MD Father of baby is present today. He states they are moving to [place] because he got a job there. They are not sure when they are going to go but probably before delivery. Patient states her hands are cracking and they are red and same thing is happening to her feet she feels hot and cold and she is jittery today and clammy. No fevers. She is weaning off her fentanyl. She is down to a half a gram a day and she is smoking this. She was on 1 g a day. She denies any other drug use. We did discuss her anxiety and likely withdrawal sy mptoms I did offer medication such as Zoloft. Patient declines, she states she is going into rehab soon. Schedule structural survey. Schedule glucose challenge test and drug screen. Office Procedures OB Clinic LOC & Office Proc's Nursing/Assessment Patient Status: Established Patient OB Clinic Nursing Assessment: Medication Reconciliation, Update PMH in EMR and Vital Signs OB Clinic Coordination of Care: Complex Care/Chronic Disease 5 or more, Consent,records obtained, informed consent, Lab and Imaging orders and Staff clarify orders Special Needs: Heart tones Established Patient Charge Established Patient Point Assignment: 125 Established Patient Point Charge: EP Level 4 (120-155)
== END 2024-09-06 14:13 | disposition home or self-care (01) ==
LOC: HODSOBC 13:25
PROVIDERS: Supervising Provider Obstetrics & Gynecology; Visit Provider Obstetrics & Gynecology
DX: O09.893 Supervision of other high risk pregnancies, third trimester (principal); Z3A.38 38 weeks gestation of pregnancy; O99.323 Drug use complicating pregnancy, third trimester; F15.90 Other stimulant use, unspecified, uncomplicated; F11.20 Opioid dependence, uncomplicated
CPT/HCPCS: 99214; G0463

== ENCOUNTER 2024-09-06 15:55 | Observation (INO) | payer MEDICAID, SELFPAY ==
[2024-09-06] VITALS (32 sets, daily range): BP systolic 115–136; BP diastolic 73–88; PULSE 82–112; RESP 20–98; TEMP 36.4; O2SAT 90–100; BMI 28.5
--- NOTE | 2024-09-06 16:15 | XR_ITS ---
Examination: Complete OB ultrasound greater than 14 weeks Date and time of exam: September 06, 2024, 1622 hours INDICATIONS: Bilateral ankle swelling beginning 1.5 weeks ago, limited care Findings: Viable intrauterine single fetus with single amniotic sac presentation Vertex spine maternal right Cardiac motion 166 BPM Placenta right lateral grade 2 Umbilical cord insertion seen Amniotic fluid index 7.1 cm Ovaries obscured by bowel gas. Composite estimated gestational age based on BPD, head circumference, abdominal circumference, femur length is 36 weeks 2 days Estimated weight 2786.5 g. Survey of intracranial anatomy, spinal anatomy, abdominal anatomy, four-chamber heart performed with no abnormalities identified. Impression: Viable intrauterine gestation vertex presentation.
[2024-09-06 17:12] LABS: Basophils % (Auto) 0 % (0-2.5); Eosinophils % (Auto) 0 % (0-10); Hematocrit 29.4 % (36.0-46.0); Hemoglobin 9.7 g/dL (12.0-16.0); Immature Granulocytes % (Auto) 1 % (0-0); Immature Granulocytes Auto 0.04 Thou/mm3 (0.00-0.00); Lymphocytes # (Auto) 1.2 Thou/mm3 (1.0-4.8); Lymphocytes % (Auto) 16 % (10-50); Mean Corpuscular Hemoglobin 27.5 pg (25.0-35.0); Mean Corpuscular Volume 83 fL (80-100); Monocytes # (Auto) 0.6 Thou/mm3 (0.0-0.8); Monocytes % (Auto) 8 % (0-12); Neutrophils # (Auto) 5.5 Thou/mm3 (1.8-7.7); Neutrophils % (Auto) 75 % (37-80); Nucleated Red Blood Cell % 0 /100 WBC (0); Platelet Count 241 Thou/mm3 (140-440); Red Blood Count 3.53 Miln/mm3 (4.00-5.20); White Blood Count 7.3 Thou/mm3 (3.6-11.0)
[2024-09-06 17:20] LABS: Fibrinogen 477 mg/dL (175-375)
[2024-09-06 17:28] LABS: Alanine Aminotransferase 11 U/L (10-49); Albumin, Serum 3.1 gm/dL (3.5-5.0); Albumin/Globulin Ratio 1.1 (1.2-2.2); Alkaline Phosphatase 297 U/L (46-116); Anion Gap 7 (7-16); Aspartate Amino Transferase 27 U/L (0-34); BUN/Creatinine Ratio 11 Ratio (12-20); Bilirubin,Total 0.2 mg/dL (0.3-1.2); Blood Urea Nitrogen 10 mg/dL (9-23); Calcium 8.5 mg/dL (8.3-10.6); Calcium (Corrected) 9.2 mg/dL (8.5-10.1); Carbon Dioxide 24.1 mMol/L (20.0-31.0); Chloride 107 mMol/L (98-107); Creatinine (Component) 0.9 mg/dL (0.6-1.3); Estimated Creatinine Clearance 80.2 mL/min (>60); Globulin 2.8 gm/dL (2.3-3.5); Glucose 89 mg/dL (74-106); LDH (Lactate Dehydrogenase) 235 U/L (120-246); Osmolality,Calculated 273 (275-295); Potassium 3.8 mMol/L (3.4-5.1); Sodium 138 mMol/L (136-145); Total Protein 5.9 gm/dL (5.7-8.2); Uric Acid 5.5 mg/dL (3.1-7.8); eGFR > 60 See Note
[2024-09-06 18:12] LABS: Collection Type, Urine Clean Catch
[2024-09-06 18:33] LABS: Creatinine,Random Urine 223 mg/dL (30-125); Protein Total, Random Urine 38 mg/dL (1-14)
[2024-09-06 18:48] LABS: Bilirubin,Urine Negative (Negative); Blood,Urine Negative (Negative); Clarity,Urine Clear (Clear/Hazy); Color,Urine Yellow (Lt Yel-Yel); Glucose, Urine Negative (Negative); Ketones,Urine Negative (Negative); Leukocyte Esterase,Urine Negative (Negative); Nitrite,Urine Negative (Negative); PH,Urine 6.5 (5.0-7.0); Protein,Urine Trace (Neg - Trace); RBC,Urine 4 /hpf (0-3); Specific Gravity,Urine 1.029 (1.001-1.035); Squamous Epithelial Cell,Urine 5 /hpf (0-5); WBC,Urine 2 /hpf (0-5)
== END 2024-09-06 18:45 | disposition home or self-care (01) ==
PROVIDERS: Admitting Provider Specialist; Visit Provider Specialist
DX: O09.33 Supervision of pregnancy with insufficient antenatal care, third trimester (principal); Z3A.36 36 weeks gestation of pregnancy
CPT/HCPCS: 36415; 59025; 59899; 76805; 80053; 81001; 82570; 83615; 84156; 84550; 85025; 85384; 85610; 85730; 87086

== ENCOUNTER 2024-10-15 13:22 | Outpatient (AMB) | payer MEDICAID, SELFPAY ==
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
[2024-10-15 13:40] VITALS: BP 129/88; PULSE 108; RESP 17; TEMP 36.6; O2SAT 99; BMI 22.5
== END 2024-10-15 14:25 | disposition home or self-care (01) ==
LOC: HODSOBC 13:22
PROVIDERS: Supervising Provider Obstetrics & Gynecology; Visit Provider Obstetrics & Gynecology
DX: Z39.2 Encounter for routine postpartum follow-up (principal); O99.325 Drug use complicating the puerperium; F11.20 Opioid dependence, uncomplicated
CPT/HCPCS: Z1038